=== PATIENT | female | born 1940 | race Two or more races ===

== ENCOUNTER 2018-04-04 13:45 | Outpatient (CLI) | payer OTHER | END 2018-04-04 13:50 | disposition home or self-care (01) | LOC: RAD 13:45 | DX: J01.90 Acute sinusitis, unspecified (principal); J32.8 Other chronic sinusitis ==

== ENCOUNTER 2018-06-05 14:08 | Outpatient (CLI) | payer OTHER | END 2018-06-05 17:00 | disposition home or self-care (01) | LOC: RAD 14:08 | DX: M79.661 Pain in right lower leg (principal) ==

== ENCOUNTER 2018-11-27 17:27 | Inpatient (IN) | payer OTHER ==
[~2018-11-27] VITALS: Ht 170.2 cm; Wt 81.6 kg
[~2018-11-27 17:27] MED LIST: ASA-EC81 MG; ATIVAN0.5 M1; BUPROPION HCL75 MG; COREG CR10 MG; ESTAZOLAM2 MG; HYDROCHLOROTH12.5 M1; LOSARTAN POTASS25 MG; PROPRANOLOL HCL80 MG; PROTONIX40 MG; VIT C-ROSE HIP500 MG; WELLBUTRIN XL150 M1; ZANTAC300 MG
== END 2018-12-10 15:08 | disposition home or self-care (01) | DRG 571 ==
LOC: ER 17:27 → SEC-K 11-28 12:01 → MEDJ 11-28 12:01 → SEC-K 11-28 16:28 → MEDJ 11-28 16:57
PROVIDERS: ADMIT Specialist
PROC: 0JBP0ZZ Excision of Left Lower Leg Subcutaneous Tissue and Fascia, Open Approach (ICD-10-PCS; principal; 2018-11-28)
PROC: 8E0ZXY6 Isolation (ICD-10-PCS; 2018-11-28)
PROC: B54DZZZ Ultrasonography of Bilateral Lower Extremity Veins (ICD-10-PCS; 2018-12-04)
DX: L89.892 Pressure ulcer of other site, stage 2 (principal); L03.116 Cellulitis of left lower limb; B37.89 Other sites of candidiasis; B35.4 Tinea corporis; F32.89 Other specified depressive episodes; B95.61 Methicillin susceptible Staphylococcus aureus infection as the cause of diseases classified elsewhere

== ENCOUNTER 2019-01-17 15:55 | Outpatient (CLI) | payer OTHER | END 2019-01-17 16:00 | disposition home or self-care (01) | LOC: LAB 15:55 | DX: L03.116 Cellulitis of left lower limb (principal) ==

== ENCOUNTER 2019-01-22 13:58 | Inpatient (IN) | payer OTHER ==
[~2019-01-22] VITALS: Ht 167.6 cm; Wt 77.1 kg
--- NOTE | 2019-01-22 14:27 | NUR ---
SE RECIBE PTE. ALERTA Y ORIENTADO X3 ESFERAS PTE CON CELLUTIS EN LA RICHARD MARS DUNN ENVIA A PTE PARA ARIN DE EMERGENCIA PARA SER ADMITIDA
--- NOTE | 2019-01-22 16:36 | NUR ---
MISS. THACKERNCOURT ORIENTA A PACIENTE SOBRE TRATAMIENTO. SE SAMI MUESTRAS DE LABORATORIO ORDENADAS. SE CANALIZA CON AREA DE VENOPUNCION HENRI DE EDEMA O ENROJECIMIENTO. SE MANTIENE EN OBSERVADION POR CAMBIOS.
[2019-02-14] MEDS ORDERED: MEDROLPACK PO (08:28)
[2019-02-14] MEDS ORDERED: ELOCON45 G1 TOP (08:28)
[2019-02-14] MEDS ORDERED: DOXYCYCLINE HY100 M3 PO (08:28)
== END 2019-02-14 13:36 | disposition home or self-care (01) | DRG 571 ==
LOC: ER 13:58 → SEC-K 21:21 → SURG 21:21 → MEDJ 21:21 → SURG 01-23 01:59 → MEDJ 01-23 11:51 → MEDI 02-06 15:23
PROVIDERS: ADMIT Internal Medicine
PROC: 0JBP0ZZ Excision of Left Lower Leg Subcutaneous Tissue and Fascia, Open Approach (ICD-10-PCS; principal; 2019-02-09)
PROC: 02HV33Z Insertion of Infusion Device into Superior Vena Cava, Percutaneous Approach (ICD-10-PCS; 2019-02-11)
DX: L03.116 Cellulitis of left lower limb (principal); L97.828 Non-pressure chronic ulcer of other part of left lower leg with other specified severity; I73.89 Other specified peripheral vascular diseases; B95.61 Methicillin susceptible Staphylococcus aureus infection as the cause of diseases classified elsewhere; B35.4 Tinea corporis; I10 Essential (primary) hypertension; B96.4 Proteus (mirabilis) (morganii) as the cause of diseases classified elsewhere; B96.5 Pseudomonas (aeruginosa) (mallei) (pseudomallei) as the cause of diseases classified elsewhere; B96.29 Other Escherichia coli [E. coli] as the cause of diseases classified elsewhere; B95.2 Enterococcus as the cause of diseases classified elsewhere

== ENCOUNTER → 2021-03-23 | Emergency (ER) | payer OTHER ==
[~2021-03-23] VITALS: Ht 170.2 cm; Wt 73.5 kg
[~2021-03-23] MED LIST changes: +ADULT ASPIRIN81 MG PO; +ARICEPT5 MG PO; +ATIVAN2 M1 PO; +CARVEDILOL6.25 MG PO; +CLOPIDOGREL BIS75 MG PO; +DOXYCYCLINE HY100 M3 PO; +ELOCON45 G1 TOP; +LORAZEPAM1 MG PO; +MEDROLPACK PO; +QUETIAPINE FUM100 MG PO; +RESTORIL15 MG PO; +RESTORIL30 MG PO
== END | disposition designated cancer center or children's hospital (05) ==
LOC: ER 17:27
DX: R45.851 Suicidal ideations (principal); F32.89 Other specified depressive episodes; E87.6 Hypokalemia; I10 Essential (primary) hypertension; N39.0 Urinary tract infection, site not specified; R10.11 Right upper quadrant pain; G30.8 Other Alzheimer's disease; F02.80 Dementia in other diseases classified elsewhere, unspecified severity, without behavioral disturbance, psychotic disturbance, mood disturbance, and anxiety; Z03.818 Encounter for observation for suspected exposure to other biological agents ruled out

== ENCOUNTER 2021-03-24 15:57 | Inpatient (IN) | payer OTHER ==
[~2021-03-24] VITALS: Ht 170.2 cm
[~2021-03-24 15:57] MED LIST changes: -ADULT ASPIRIN81 MG PO; -ARICEPT5 MG PO; -ATIVAN2 M1 PO; -CARVEDILOL6.25 MG PO; -CLOPIDOGREL BIS75 MG PO; -LORAZEPAM1 MG PO; -QUETIAPINE FUM100 MG PO; -RESTORIL15 MG PO; -RESTORIL30 MG PO
--- NOTE | 2021-03-24 16:39 | NUR ---
PTE SE RECIBE POR URINARY PROBLEMS REFIERE PARAMEDICO Y PTE..
--- NOTE | 2021-03-24 17:29 | NUR ---
PTE FEMENINA ALERTA Y ORIENTADA SOLO EN PERSONA EN COMPANIA DE FAMILIAR ES EVALUADA POR . T ORIENTA A FAMILIAR SOBRE ORDENES DE [place] REFIERE COMPRENDER. CANALIZA VENA BAJO MEDIDAS ASEPTICAS, AREA HENRI DE EDEMA Y ERITEMA. ADMINISTRA MEDICAMENTOS, BAJO MEDIDAS ASEPTICAS. PENDIENTE CONSULTA CON MEDICINA INTERNA.
--- NOTE | 2021-03-24 17:31 | NUR ---
SE RECIBE PTE ALERTA Y DESORIENTADA X3 ACOMPANA[place]. SE CANALIZA EN MANO DERECHA AREA HENRI DE EDEMA Y DE ENROJECIMIENTO. SE LE ADMINISTRA MEDICAMENTO LOBITO ORDEN MEDICA Y SE COLOCA PTE EN SHERRIE CON BARANDAS ELEVADAS. SE OBSERVAN HEMATOS EN MANO Y BRAZO DERECHO.
[2021-04-01] MEDS ORDERED: CARVEDILOL6.25 MG PO (09:01)
[2021-04-01] MEDS ORDERED: CLOPIDOGREL BIS75 MG PO (09:01)
[2021-04-01] MEDS ORDERED: ARICEPT5 MG PO (09:01)
[2021-04-01] MEDS ORDERED: QUETIAPINE FUM100 MG PO (09:01)
[2021-04-01] MEDS ORDERED: ADULT ASPIRIN81 MG PO (09:01)
[2021-04-01] MEDS ORDERED: RESTORIL15 MG PO (09:01)
[2021-04-01] MEDS ORDERED: LORAZEPAM1 MG PO ×2 (09:01)
[2021-04-01] MEDS ORDERED: ATIVAN2 M1 PO ×3 (15:03→15:12)
[2021-04-01] MEDS ORDERED: RESTORIL30 MG PO (15:03)
== END 2021-04-01 12:50 | disposition home or self-care (01) | DRG 690 ==
LOC: ER 15:57 → MEDJ 19:19 → SEC-K 19:19 → MEDJ 19:43
PROVIDERS: ADMIT Internal Medicine; ATTEND Internal Medicine
PROC: BW28ZZZ Computerized Tomography (CT Scan) of Head (ICD-10-PCS; principal; 2021-03-24)
PROC: B030ZZZ Magnetic Resonance Imaging (MRI) of Brain (ICD-10-PCS; 2021-03-25)
DX: N39.0 Urinary tract infection, site not specified (principal); G93.49 Other encephalopathy; F32.89 Other specified depressive episodes; I50.9 Heart failure, unspecified; I11.0 Hypertensive heart disease with heart failure; G30.9 Alzheimer's disease, unspecified; F02.80 Dementia in other diseases classified elsewhere, unspecified severity, without behavioral disturbance, psychotic disturbance, mood disturbance, and anxiety; E87.6 Hypokalemia; B95.61 Methicillin susceptible Staphylococcus aureus infection as the cause of diseases classified elsewhere; Z20.822 Contact with and (suspected) exposure to COVID-19; B35.4 Tinea corporis
CPT/HCPCS: 70553